=== PATIENT | female | born 1955 | race Caucasian/White ===

== ENCOUNTER 2022-01-30 | Outpatient (REF) | payer MEDICARE, SELFPAY | END 2022-01-30 00:01 | disposition home or self-care (01) | LOC: HO.MMNH1L | PROVIDERS: Visit Provider Family Medicine | DX: Z13.89 Encounter for screening for other disorder (principal) ==

== ENCOUNTER 2022-01-31 05:00 | Outpatient (REF) | payer MEDICARE, SELFPAY | END 2022-01-31 05:01 | disposition home or self-care (01) | LOC: HO.MMNH1L 05:00 | PROVIDERS: Visit Provider Family Medicine | DX: Z13.89 Encounter for screening for other disorder (principal) ==

== ENCOUNTER 2022-02-06 05:00 | Outpatient (REF) | payer MEDICARE, SELFPAY | END 2022-02-06 05:01 | disposition home or self-care (01) | LOC: HO.MMNH1L 05:00 | PROVIDERS: Visit Provider Family Medicine | DX: Z13.89 Encounter for screening for other disorder (principal) ==